=== PATIENT | male | born 1970 | race Caucasian/White ===

== ENCOUNTER 2023-03-07 11:10 | Emergency (ER) | payer BC, SELFPAY ==
[2023-03-07 11:26] VITALS: BP 165/91; PULSE 82; RESP 24; TEMP 36.6; O2SAT 99
[2023-03-07 11:27] VITALS: BP 165/91; PULSE 82; RESP 24; TEMP 36.6; O2SAT 99
--- NOTE | 2023-03-07 11:28 | ED.WOUNDLAC ---
HPI - Wound/Laceration General Chief Complaint: Wound/Laceration Stated Complaint: Stepped on nail Time Seen by Provider: 03/07/23 11:28 Source: patient Mode of arrival: ambulatory Limitations: no limitations History of Present Illness HPI narrative: 52 y/o male presented for c/o puncture wound to right foot after stepping on a nail at 1015 today. He works for [employer] and was wearing boots, states the nail went through the boot and punctured the foot. States the bleeding is controlled, he applied pressure and a bandaid. Requesting a tetanus update. Related Data Home Medications Medication Instructions Recorded Confirmed allopurinol 100 mg tablet 100 mg DAILY 03/07/23 03/07/23 simvastatin 10 mg tablet 10 mg DAILY 03/07/23 03/07/23 testosterone cypionate 200 mg/mL 100 mg DIRECTED 03/07/23 03/07/23 intramuscular oil Allergies Allergy/AdvReac Type Severity Reaction Status Date / Time No Known Allergies Allergy Verified 03/07/23 11:26 Review of Systems Review of Systems: CONSTITUTIONAL: Denies body aches, fever, chills, or sweats. EYES: Denies visual changes, redness, or discharge. ENT: Denies rhinorrhea, congestion CARDIOVASCULAR: Denies chest pain, palpitations, or edema. RESPIRATORY: Denies cough or dyspnea. GASTROINTESTINAL: Denies abdominal pain, nausea, vomiting, or diarrhea. SKIN: right plantar surface puncture wound MUSCULOSKELETAL: Denies back pain, joint pain, or myalgia. NEUROLOGIC: Denies headache, numbness, tingling, or weakness. [facility] Past Medical History Medical History (Updated 03/07/23 @ 11:44 by Yelena Boo, MARISOL) No pertinent past medical history Comments At time of signature, I have reviewed and agree with nursing past medical, surgical, social and family history unless otherwise noted. Please see nursing chart for further information. There is no relevant family history pertinent to the presenting complaint Exam Narrative: GENERAL: Well-appearing HEAD: Normocephalic, atraumatic. EYES: conjunctivae clear, and EOMI. ENT: Mucous membranes moist. Oropharynx without edema, erythema or lesions. NECK: Supple. No lymphadenopathy CHEST: Clear to auscultation. HEART: Regular rate and rhythm. SKIN: Warm, dry. Right foot puncture site approx 1mm to plantar surface, no swelling or bruising. Pulses intact. Full ROM, normal circulation and sensation. NEURO: Alert and oriented x3. Extrem: Ankle/foot/toe images: 1. site of puncture wound Course Course Emergency Course: Patient is aware of diagnosis, understands and agrees to treatment plan. Anticipatory guidance given. Patient agrees to follow-up as directed and is aware of reasons to seek care at the emergency department. Portions of this record may have been created with voice recognition software Level of Care: Express Care Visit Vital Signs Vital signs: Vital Signs Temperature 97.8 F 03/07/23 11:26 Pulse Rate 82 03/07/23 11:26 Respiratory Rate 24 H 03/07/23 11:26 Blood Pressure 165/91 H 03/07/23 11:26 Pulse Oximetry 99 03/07/23 11:26 Oxygen Delivery Room Air 03/07/23 11:26 Temperature 97.8 F 03/07/23 11:27 Pulse Rate 82 03/07/23 11:27 Respiratory Rate 24 H 03/07/23 11:27 Blood Pressure 165/91 H 03/07/23 11:27 Pulse Oximetry 99 03/07/23 11:27 Oxygen Delivery Room Air 03/07/23 11:27 Reviewed MDM - Wound/Laceration MDM Narrative Medical decision making narrative: Tetanus updated. Discussed physical exam findings. Advised supportive measures and signs/symptoms to go to the ER. Pt is appropriate for outpt treatment and f/u. Differential Diagnosis Differential diagnosis: Likely laceration, abscess, abrasion, avulsion of skin and other (puncture wound) Discharge Plan Discharge Clinical Impression: Puncture wound of foot Qualifiers: Encounter type: initial encounter Laterality: right Qualified Code(s): S91.331A - Puncture wound without foreign body, right
[2023-03-07] MEDS: TETANUS,DIPHTHERIA,AC PERTUSSIS ADULT (0.5 ML) BOOSTRIX IM (11:39)
[2023-03-07 11:48] VITALS: BP 182/99; PULSE 83; RESP 20; O2SAT 99
== END 2023-03-07 11:48 | disposition home or self-care (01) ==
PROVIDERS: Emergency Provider Nurse Practitioner Family
DX: S91.331A Puncture wound without foreign body, right foot, initial encounter (principal); W45.0XXA Nail entering through skin, initial encounter; Z23 Encounter for immunization
CPT/HCPCS: 90471; 90715; 99213; G0463